=== PATIENT | female | born 1965 | race Caucasian/White ===

== ENCOUNTER 2024-02-24 06:10 | Day surgery (SDC) | payer MEDICARE, OTHER ==
[~2024-02-24] VITALS: Ht 152.4 cm; Wt 65.9 kg
[2024-02-24] MEDS ORDERED: Lactated Ringer's 1,000 ML IV ONE ×2 (06:17→07:16)
[2024-02-24] MEDS ORDERED: CeFAZolin Sodium 2,000 MG VIAL ONE (06:43)
[2024-02-24] MEDS ORDERED: FentaNYL Citrate 50 MCG/ML 2 ML Injection ONE ×2 (06:50→09:35)
[2024-02-24] MEDS ORDERED: propofoL 20 ML IV ONE (06:50)
[2024-02-24] MEDS ORDERED: Midazolam HCl 1MG / ML 2ML Vial ONE (06:51)
[2024-02-24] MEDS ORDERED: Lidocaine 2%-Epineph 1:200000 20 ML SDV ONE (06:51)
[2024-02-24] MEDS ORDERED: Ondansetron HCl 2 MG / ML 2ML Vial ONE (06:51)
[2024-02-24] MEDS ORDERED: Bupivacaine 0.5% HCl 5 MG/ML 30MLVIAL ONE (06:51)
[2024-02-24] MEDS ORDERED: Dexamethasone Sod Phos 10 MG/ML 1ML VIAL ONE (06:51)
[2024-02-24] MEDS ORDERED: Dexmedetomidine HCL 200 MCG / 2 ML ONE (06:53)
[2024-02-24] MEDS ORDERED: ATOR40TA PO (07:05)
[2024-02-24] MEDS ORDERED: AMLODIPINE BESYL5 MG PO (07:05)
[2024-02-24] MEDS ORDERED: ROPINIROLE HCL2 M1 PO (07:07)
[2024-02-24] MEDS ORDERED: LISI20 PO (07:08)
[2024-02-24] MEDS ORDERED: PROP10 PO (07:09)
--- NOTE | 2024-02-24 07:20 | NUR ---
02/24/24 0720 Cinthya Will RED SPOT ON PATIENT'S LEG PATIENT REPORTS IT HAS BEEN THERE FOR YEARS, HAS NOT CHANGED, ASSESSED BY DR DICKERSON
[2024-02-24] MEDS ORDERED: Lidocaine 1%-Epineph 1:100000 20 ML MDV ONE (07:50)
[2024-02-24] MEDS ORDERED: ePHEDrine Sulfate 50 MG/ML 1ML Injection ONE (07:54)
--- NOTE | 2024-02-24 07:59 | NUR ---
02/24/24 0759 [employer] LIDOCAINE 2% 1:200,000 W/ ROPIVACAINE 0.5% 1:[address] DICK[address] DR CROW FOR INJECTION AT [facility].
[2024-02-24] MEDS ORDERED: Ketorolac Tromethamine 30mg Vial ONE (08:05)
--- NOTE | 2024-02-24 09:46 | NUR ---
02/24/24 0946 Binu Francis FENTANYL 25MCG IV GIVEN AT 0943 FOR LEFT ANKLE PAIN AT 10/06
[2024-02-24] MEDS ORDERED: OxyCODONE HCL 5 MG TAB ONE (09:52)
== END 2024-02-24 10:19 | disposition home or self-care (01) ==
LOC: ORSCSDS 06:10
PROVIDERS: Orthopaedic Surgery
PROC: 0QSK04Z Reposition Left Fibula with Internal Fixation Device, Open Approach (ICD-10-PCS; principal; 2024-02-24 07:30)
DX: S82.65XK Nondisplaced fracture of lateral malleolus of left fibula, subsequent encounter for closed fracture with nonunion (principal); E11.9 Type 2 diabetes mellitus without complications; I10 Essential (primary) hypertension; E78.5 Hyperlipidemia, unspecified; G47.33 Obstructive sleep apnea (adult) (pediatric); F41.9 Anxiety disorder, unspecified; F32.A Depression, unspecified; Z86.711 Personal history of pulmonary embolism; Z79.82 Long term (current) use of aspirin; Z79.899 Other long term (current) drug therapy; F17.200 Nicotine dependence, unspecified, uncomplicated
CPT/HCPCS: 82947; A9270; C1713; J0690; J1100; J1885; J2250; J2405; J2704; J3010; J7120

== ENCOUNTER → 2024-09-25 | Outpatient (CLI) | payer BC ==
[~2024-09-25] MED LIST: AMLODIPINE BESYL5 MG PO; ATOR40TA PO; LISI20 PO; PROP10 PO; ROPINIROLE HCL2 M1 PO
[2024-09-25 13:39] LABS: BASOPHILS ABSOLUTE AUTO 0.04 K/mm3 (0.00-0.23); BASOPHILS PERCENT AUTO 0 % (0-2); EOSINOPHILS PERCENT AUTO 0 % (0-6); Hematocrit 50.7 % (33.0-51.0); Hemoglobin 17.1 g/dL (11.5-16.0); IMMATURE GRAN ABSOLUTE AUTO 0.09 K/mm3 (0.00-0.10); IMMATURE GRAN PERCENT AUTO 1 % (0-1); LYMPHOCYTES ABSOLUTE AUTO 2.68 K/mm3 (0.84-5.20); LYMPHOCYTES PERCENT AUTO 16 % (21-46); MONOCYTES ABSOLUTE AUTO 1.03 K/mm3 (0.16-1.47); MONOCYTES PERCENT AUTO 6 % (4-13); Mean Corpuscular HGB 30.4 pg (26.0-34.0); Mean Corpuscular HGB Conc 33.7 g/dL (31.5-36.5); Mean Corpuscular Volume 90 fL (80-100); NEUTROPHILS ABSOLUTE AUTO 12.69 K/mm3 (1.96-9.15); NEUTROPHILS PERCENT AUTO 77 % (41-73); Platelet Count 285 K/mm3 (150-400); RDW Coefficient Variation 13.2 % (11.7-14.2); RDW Standard Deviation 43.4 fL (35.1-46.3); Red Blood Cell Count 5.62 M/mm3 (3.80-5.20); White Blood Cell Count 16.53 K/mm3 (4.00-11.30)
[2024-09-25 14:02] LABS: Alanine Aminotransfer (ALT/SGP 118 U/L (12-78); Albumin, Blood 4.3 g/dL (3.4-5.0); Albumin/Globulin Ratio 1.1 (0.8-1.8); Alk Phos 154 U/L (40-126); Anion Gap 20 mmol/L (3-11); Aspartate Aminotrans (AST/SGOT 74 U/L (12-37); Bilirubin, Total 1.4 mg/dL (0.1-1.0); Blood Urea Nitrogen 18 mg/dL (8-24); Bun/Creatinine Ratio 16.8 (12.0-20.0); CHOL/HDL RATIO 3.5; CO2, Blood 24 mmol/L (21-32); Chloride, Blood 100 mmol/L (98-108); Cholesterol 239 mg/dL (50-200); Creatinine, Blood 1.07 mg/dL (0.40-1.00); Free Thyroxine 1.04 ng/dL (0.70-1.60); Globulin, Blood 3.9 g/dL (2.2-4.0); Glomerular Filtration Rate 60 (60-); Glucose, Blood 173 mg/dL (70-99); HDL Cholesterol 69 mg/dL (>39); LDL/HDL RATIO 1.9; Low Density Lipoprotein Chol 132 mg/dL (<110); Sodium, Blood 141 mmol/L (136-145); Thyroid Stimulating Hormone 1.488 uIU/mL (0.360-4.800); Total Protein, Blood 8.2 g/dL (6.4-8.2); Triglycerides 189 mg/dL (30-160); Very Low Density Lipoprot Chol 37 mg/dL (6-32)
[2024-09-27 15:14] LABS: HEPATITIS C AB CIA INTERP Negative (Negative); HEPATITIS C ANTIBODY CIA INDEX <0.02 IV
== END ==
LOC: LAB SHORT 13:32 → LAB 13:32
PROVIDERS: Emergency Medicine; Physician Assistant
DX: E11.69 Type 2 diabetes mellitus with other specified complication (principal); F41.9 Anxiety disorder, unspecified; R00.0 Tachycardia, unspecified; Z11.59 Encounter for screening for other viral diseases
CPT/HCPCS: 80053; 80061; 82043; 82570; 83036; 83690; 83880; 84439; 84443; 84484; 85025; 86803